=== PATIENT | male | born 1985 | race Caucasian/White ===

== ENCOUNTER 2018-06-25 08:45 | Emergency (ER) | payer MEDICAID ==
[~2018-06-25] VITALS: Ht 180.3 cm; Wt 74.8 kg
[~2018-06-25 08:45] MED LIST: NORPTMEDS CO
[2018-06-25 09:54] LABS: Basophils # (auto) 0.1 uL; Basophils % (auto) 0.4 % (0.0-2.0); Eosinophils # (auto) 0 uL; Eosinophils % (auto) 0.1 % (0.0-7.0); Hematocrit 47.2 % (41.0-53.0); Hemoglobin 16.1 g/dL (13.5-17.5); Lymphocytes # (auto) 1.1 uL; Lymphocytes % (auto) 9.1 % (10.0-50.0); Mean Corpuscular Hemoglobin 33.1 pg (28.0-32.0); Mean Corpuscular Hgb Conc. 34.1 g/dL (32.0-36.0); Mean Corpuscular Volume 97.1 fL (80.0-100.0); Monocytes # (auto) 0.7 uL; Monocytes % (auto) 5.9 % (0.0-12.0); Neutrophils # (auto) 10.4 uL; Neutrophils % (auto) 84.5 % (37.0-80.0); Nucleated Red Blood Cells % 0.1 %; Platelet Count (auto) 249 10^3/uL (140-450); Red Blood Cells 4.86 10^6/uL (4.5-5.90); Red Cell Distribution Width 13.5 % (11.8-14.3); White Blood Cell 12.3 10^3/uL (4.4-10.8)
[2018-06-25 10:04] LABS: Albumin 4.5 g/dL (3.4-5.0); Anion Gap 9 (5-15); Aspartate Aminotransferase 16 U/L (15-37); BUN/Creatinine Ratio 7.6; Blood Urea Nitrogen 9 mg/dL (7-18); Carbon Dioxide 24 mmol/L (21-32); Chloride 104 mmol/L (98-107); GFR African American 92 mL/min; GFR Non-African American 76 mL/min; Glucose 91 mg/dL (74-106); Magnesium 1.9 mg/dL (1.6-2.6); Sodium 137 mmol/L (136-145)
[2018-06-25 10:09] LABS: Urine WBC None Seen /hpf (0 - 3)
[2018-06-25 10:16] LABS: Alanine Aminotransferase 29 U/L (16-61); Alkaline Phosphatase 55 U/L (45-117); Bilirubin, Total 0.5 mg/dL (0.2-1.0); Total Protein 8.5 g/dL (6.4-8.2)
[2018-06-25 10:27] LABS: Urine Bacteria NONE SEEN /hpf (None Seen); Urine Blood Negative /uL (Negative); Urine Specific Gravity 1.004 (1.001-1.035)
[2018-06-25] MEDS ORDERED: LORazepam 2MG/ML-1ML VIAL IV ONE (10:30)
[2018-06-25] MEDS ORDERED: SODIUM CHLORIDE 0.9% 1,000 ML IVB ONE (10:30)
[2018-06-25 10:41] LABS: Amphetamine Screen, Urine NEGATIVE (NEGATIVE); Barbiturate Scree,Urine NEGATIVE (NEGATIVE); Benzodiazephine Screen, Urine NEGATIVE (NEGATIVE); Cannabinoid Screen, Urine NEGATIVE (NEGATIVE); Cocaine Screen, Urine POSITIVE (NEGATIVE); Opiate Scree,Urine NEGATIVE (NEGATIVE); Phencyclidine Screen, Urine NEGATIVE (NEGATIVE)
[2018-06-25 12:50] VITALS: BP 120/68
== END 2018-06-25 12:55 | disposition home or self-care (01) ==
LOC: ER 08:45 → EDUNIT# 08:45 → EDBD 08:45 → ER 12:55
DX: R07.89 Other chest pain (principal); F10.129 Alcohol abuse with intoxication, unspecified; R00.0 Tachycardia, unspecified; F14.10 Cocaine abuse, uncomplicated; F17.210 Nicotine dependence, cigarettes, uncomplicated
CPT/HCPCS: 36415; 71046; 80053; 80307; 81001; 83735; 84443; 84484; 85025; 93005; 94761; 96374; 99285; J2060

== ENCOUNTER → 2019-11-25 | Emergency (ER) | payer SELFPAY ==
[~2019-11-25] VITALS: Ht 182.9 cm; Wt 83.9 kg
[~2019-11-25] MED LIST changes: +NEOMYCIN-BACITRACIN-POLYM UNITDOSE PKG TOP OINT TOP ONE; +TETANUS-DIPTH-ACEL PERTUSSIS 0.5ML SYR Tdap IM ONE
[2019-11-25 06:40] VITALS: BP 129/90
[2019-11-25 08:41] LABS: Urine Bacteria NONE SEEN /hpf (None Seen); Urine Blood Negative /uL (Negative); Urine Specific Gravity 1.007 (1.001-1.035); Urine WBC <1 /hpf (0 - 3)
[2019-11-25 09:00] LABS: Amphetamine Screen, Urine NEGATIVE (NEGATIVE); Barbiturate Scree,Urine NEGATIVE (NEGATIVE); Benzodiazephine Screen, Urine NEGATIVE (NEGATIVE); Cannabinoid Screen, Urine NEGATIVE (NEGATIVE); Cocaine Screen, Urine POSITIVE (NEGATIVE); Opiate Scree,Urine NEGATIVE (NEGATIVE)
[2019-11-25 09:09] LABS: Phencyclidine Screen, Urine NEGATIVE (NEGATIVE)
== END | disposition home or self-care (01) ==
LOC: ER 06:23
DX: S00.12XA Contusion of left eyelid and periocular area, initial encounter (principal); S00.33XA Contusion of nose, initial encounter; S80.212A Abrasion, left knee, initial encounter; S80.211A Abrasion, right knee, initial encounter; F10.129 Alcohol abuse with intoxication, unspecified; F14.10 Cocaine abuse, uncomplicated; F17.210 Nicotine dependence, cigarettes, uncomplicated; Y08.89XA Assault by other specified means, initial encounter; Y93.89 Activity, other specified; Y99.8 Other external cause status; Y92.89 Other specified places as the place of occurrence of the external cause
CPT/HCPCS: 36415; 70450; 70486; 72125; 80307; 80320; 81001; 90471; 90715

== ENCOUNTER → 2021-04-26 04:58 | Emergency (ER) | payer SELFPAY ==
[~2021-04-26 04:58] MED LIST changes: -NEOMYCIN-BACITRACIN-POLYM UNITDOSE PKG TOP OINT TOP ONE; -TETANUS-DIPTH-ACEL PERTUSSIS 0.5ML SYR Tdap IM ONE
== END | disposition left against medical advice (07) ==
LOC: ER 04:58
DX: Z53.21 Procedure and treatment not carried out due to patient leaving prior to being seen by health care provider (principal)